=== PATIENT | female | born 1995 | race African-American/Black ===

== ENCOUNTER 2025-05-19 11:38 | Emergency (ER) | payer SELFPAY ==
[~2025-05-19] VITALS: Ht 162.6 cm; Wt 50.0 kg
[2025-05-19 11:42] VITALS: O2SAT 99
[2025-05-19 12:27] LABS: BASOPHILS % 0.5 % (0.0-2.0); EOSINOPHILS % 3.2 % (0.0-5.0); HEMATOCRIT. 36.4 % (36.0-48.0); HEMOGLOBIN. 11.9 g/dL (12.0-16.0); LYMPHOCYTES % 24.5 % (20.0-50.0); MEAN PLATELET VOLUME 6.8 fl (7.4-10.4); MONOCYTES % 9.2 % (2.0-8.0); NEUTROPHILS % 62.6 % (40.0-76.0); PLATELET 439 x1000/uL (130-400); RED BLOOD CELL COUNT 4.35 mill/uL (4.2-5.4); RED CELL DISTRIBUTION WIDTH 16.8 % (11.6-14.6)
[2025-05-19] MEDS: HALOPERIDOL LACTATE 5MG/ML VIAL IM ONE (12:32)
[2025-05-19] MEDS: DIPHENHYDRAMINE 50MG/ML VIAL IM ONE (12:32)
[2025-05-19] MEDS: LORAZEPAM 2MG/ML UD SYRINGE IM NR (12:32)
[2025-05-19 12:42] LABS: CREATININE 0.9 mg/dL (0.6-1.0); UREA NITROGEN BLOOD 8 mg/dL (9-23)
[2025-05-19 12:43] LABS: ETHANOL BLOOD < 10 mg/dL (<10)
[2025-05-20 07:08] LABS: CLARITY URINE CLOUDY (CLEAR); COLOR URINE DARK YELLOW (YELLOW); GLUCOSE URINE NEGATIVE (NEGATIVE); KETONES URINE TRACE (NEGATIVE); LEUKOCYTE ESTERASE URINE 2+ (NEGATIVE); NITRITE URINE NEGATIVE (NEGATIVE); OCCULT BLOOD URINE NEGATIVE (NEGATIVE); PH URINE 6.0 (4.5-8.0); PROTEIN URINE 1+ (NEGATIVE); SPECIFIC GRAVITY URINE 1.033 (1.005-1.030); UROBILINOGEN URINE 1.0 E.U./dL (0.2-1.0)
[2025-05-20 07:41] LABS: SQUAMOUS EPITHELIAL CELL URINE 1+ /lpf (RARE/1+)
[2025-05-20 07:48] LABS: WBC URINE 25-50 /hpf (0-2)
[2025-05-20 07:49] LABS: BACTERIA URINE TRACE
[2025-05-20 08:10] LABS: *AMPHETAMINES SCREEN URINE PRESUMPTIVE POSITIVE (NEGATIVE); *BARBITURATES SCREEN URINE NEGATIVE (NEGATIVE)
[2025-05-20 08:11] LABS: *BENZODIAZEPINES SCREEN URINE NEGATIVE (NEGATIVE); *COCAINE SCREEN URINE NEGATIVE (NEGATIVE); CANNABINOID URINE SCREEN NEGATIVE (NEGATIVE); ECSTASY MDMA SCREEN URINE CONF.TEST INDICATED (NEGATIVE); METHADONE URINE SCREEN NEGATIVE (NEGATIVE); OPIATES URINE SCREEN NEGATIVE (NEGATIVE); PHENCYCLIDINE URINE SCREEN NEGATIVE (NEGATIVE)
[2025-05-20 09:42] VITALS: BP 119/84; PULSE 82; RESP 14; TEMP 36.8; O2SAT 100
[2025-05-20] MEDS ORDERED: CEPH500T MT (13:02)
== END 2025-05-20 13:35 | disposition home or self-care (01) ==
LOC: ER 11:48 → EDBD 11:48 → ER 05-20 13:35
DX: F19.10 Other psychoactive substance abuse, uncomplicated (principal); F10.129 Alcohol abuse with intoxication, unspecified; F31.9 Bipolar disorder, unspecified; Z59.00 Homelessness unspecified; Z79.899 Other long term (current) drug therapy
CPT/HCPCS: 80048; 80307; 80329; 80320; 85025; 36415; 96372; 99285; 87426; 80305; 81003; 87086; J1200; J1630; J2060; Z7610 ×2; A4606; G0480